=== PATIENT | female | born 1995 | race Caucasian/White ===

== ENCOUNTER 2017-09-10 20:33 | Emergency (ER) | payer BC ==
[2017-09-10 20:58] VITALS: TEMP 99.4
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
--- NOTE | 2017-09-10 22:32 | RAD ---
EXAM DESCRIPTION: Cervical Spine,3 Views CLINICAL HISTORY: 21 years Female pain COMPARISON: None. TECHNIQUE: Three views FINDINGS: There is mild anterolisthesis of C4 on C5. No prevertebral soft tissue swelling. No evidence of acute fracture. Odontoid appears intact. IMPRESSION: No acute fracture is identified. CT could be obtained to better evaluate if there is continued clinical concern. Electronically signed by: Mela Isaac MD 09/10/2017 10:30 PM CDT
--- NOTE | 2017-09-10 22:34 | RAD ---
EXAM DESCRIPTION: Bilateral Ribs (accession [id number]), Chest,2 Views (accession [id number]), Sternum (accession [id number]) CLINICAL HISTORY: 21 years Female pain COMPARISON: None. FINDINGS: Two-view chest x-ray, two views of the bilateral ribs and two views of the sternum. The cardiomediastinal silhouette appears unremarkable. No consolidating infiltrates or pleural effusions. No pneumothorax. No acute rib fracture is identified. There is a slightly displaced fracture involving the inferior portion of the manubrium sternum. The distal fracture fragment is displaced slightly anteriorly. IMPRESSION: There is a fracture involving the inferior portion of the manubrium sternum. No definite rib fractures are identified. Electronically signed by: Abram Isaac MD 09/10/2017 10:32 PM CDT
--- NOTE | 2017-09-10 22:34 | RAD ---
EXAM DESCRIPTION: Bilateral Ribs (accession [id number]), Chest,2 Views (accession [id number]), Sternum (accession [id number]) CLINICAL HISTORY: 21 years Female pain COMPARISON: None. FINDINGS: Two-view chest x-ray, two views of the bilateral ribs and two views of the sternum. The cardiomediastinal silhouette appears unremarkable. No consolidating infiltrates or pleural effusions. No pneumothorax. No acute rib fracture is identified. There is a slightly displaced fracture involving the inferior portion of the manubrium sternum. The distal fracture fragment is displaced slightly anteriorly. IMPRESSION: There is a fracture involving the inferior portion of the manubrium sternum. No definite rib fractures are identified. Electronically signed by: Abram Isaac MD 09/10/2017 10:32 PM CDT
--- NOTE | 2017-09-10 22:34 | RAD ---
EXAM DESCRIPTION: Bilateral Ribs (accession [id number]), Chest,2 Views (accession [id number]), Sternum (accession [id number]) CLINICAL HISTORY: 21 years Female pain COMPARISON: None. FINDINGS: Two-view chest x-ray, two views of the bilateral ribs and two views of the sternum. The cardiomediastinal silhouette appears unremarkable. No consolidating infiltrates or pleural effusions. No pneumothorax. No acute rib fracture is identified. There is a slightly displaced fracture involving the inferior portion of the manubrium sternum. The distal fracture fragment is displaced slightly anteriorly. IMPRESSION: There is a fracture involving the inferior portion of the manubrium sternum. No definite rib fractures are identified. Electronically signed by: Abram Isaac MD 09/10/2017 10:32 PM CDT
[2017-09-10] MEDS ORDERED: KETOROLAC TROMETHAMINE INJ 30 MG/ML VIAL IV ONE (23:21)
[2017-09-10] MEDS ORDERED: KETOROLAC TROMETHAMINE INJ 30 MG/ML VIAL ONE (23:21)
[2017-09-10 23:43] VITALS: BP 123/76; O2SAT 99
== END 2017-09-10 23:35 | disposition home or self-care (01) ==
LOC: ER 20:33
DX: S22.21XA Fracture of manubrium, initial encounter for closed fracture (principal); R07.1 Chest pain on breathing; Z87.891 Personal history of nicotine dependence; W16.92XA Jumping or diving into unspecified water causing other injury, initial encounter; Y92.89 Other specified places as the place of occurrence of the external cause
CPT/HCPCS: 71046; 71111; 71120; 72040; J1885